=== PATIENT | female | born 1965 | race Caucasian/White ===

== ENCOUNTER 2023-06-14 18:07 | Emergency (ER) | payer OTHER ==
[~2023-06-14] VITALS: Ht 162.6 cm; Wt 72.7 kg
[2023-06-14] MEDS ORDERED: LEXA1TAB2 PO (18:20)
[2023-06-14] MEDS ORDERED: SUBO8MIS SL (18:20)
[2023-06-14] MEDS ORDERED: ROLLMIS8 XX (19:39)
[2023-06-14 19:43] VITALS: BP 138/51; TEMP 97.1; O2SAT 98
== END 2023-06-14 19:47 | disposition home or self-care (01) ==
LOC: M ED 18:37
DX: S80.01XA Contusion of right knee, initial encounter (principal); W06.XXXA Fall from bed, initial encounter; F41.9 Anxiety disorder, unspecified; F32.A Depression, unspecified; F17.200 Nicotine dependence, unspecified, uncomplicated; F12.11 Cannabis abuse, in remission; Y92.009 Unspecified place in unspecified non-institutional (private) residence as the place of occurrence of the external cause; Y93.89 Activity, other specified; Y99.9 Unspecified external cause status; Z79.899 Other long term (current) drug therapy

== ENCOUNTER 2023-11-17 06:56 | Emergency (ER) | payer MEDICARE, SELFPAY ==
[~2023-11-17] VITALS: Ht 165.1 cm; Wt 74.1 kg
[~2023-11-17 06:56] MED LIST: LEXA1TAB2 PO; ROLLMIS8 XX; SUBO8MIS SL
[2023-11-17 09:28] VITALS: BP 167/77; TEMP 99; O2SAT 98
[2023-11-17] MEDS: ACETAMINOPHEN 500 MG TAB PO ONE (10:13)
[2023-11-17] MEDS: BENZOCAINE 20% GEL 9GM TUBE (ANBESOL MAX STRENGTH) TOP ONE (10:13)
[2023-11-17] MEDS: ARTICAINE HCL/EPINEPHRINE 4%-1:200,000 1.7ML INJ (SEPTOCAINE) SM ONE (10:13)
[2023-11-17] MEDS ORDERED: AMOX875T2 PO (10:45)
== END 2023-11-17 11:15 | disposition home or self-care (01) ==
LOC: M ED 06:56 → EDBD 06:56 → M ED 11:15
DX: K02.9 Dental caries, unspecified (principal); K08.89 Other specified disorders of teeth and supporting structures; F17.200 Nicotine dependence, unspecified, uncomplicated; F11.10 Opioid abuse, uncomplicated; Z79.2 Long term (current) use of antibiotics; Z79.899 Other long term (current) drug therapy

== ENCOUNTER 2023-12-20 13:16 | Emergency (ER) | payer MEDICARE, MEDICAID ==
[~2023-12-20] VITALS: Ht 160 cm; Wt 78.2 kg
[~2023-12-20 13:16] MED LIST changes: +AMOX875T2 PO
[2023-12-20] MEDS ORDERED: VENL37.598 (13:52)
[2023-12-20] MEDS ORDERED: TRAZ-252 (13:52)
[2023-12-20] MEDS ORDERED: MECL-86 (13:52)
[2023-12-20] MEDS ORDERED: BUPR1SUB5 (13:52)
[2023-12-20 13:59] LABS: BASO % 0.4 % (0.0-1.0); EOS # 0.1 10^3/uL (0.0-0.5); HEMATOCRIT 38.6 % (36.0-47.0); LYMPH # 2.1 10^3/uL (1.5-5.0); LYMPH % 30.4 % (24.0-44.0); MEAN CORPUSCULAR HEMOGLOBIN 31.1 pg (27.0-33.0); MEAN CORPUSCULAR HGB CONC 33.7 g/dl (32.0-36.5); MEAN CORPUSCULAR VOLUME 92.3 fl (80.0-96.0); MONO # 0.4 10^3/uL (0.0-0.8); MONO % 5.9 % (2.0-8.0); NEUTROPHILS # 4.2 10^3/uL (1.5-8.5); PLATELET COUNT, AUTOMATED 236 10^3/uL (150-450); RED BLOOD COUNT 4.18 10^6/uL (4.00-5.40); WHITE BLOOD COUNT 6.8 10^3/uL (4.0-10.0)
[2023-12-20 14:27] LABS: LIPASE 27 U/L (12-53)
[2023-12-20 14:30] LABS: ALBUMIN 3.8 G/DL (3.2-5.2); ALKALINE PHOSPHATASE 53 U/L (46-116); ALT/SGPT 12 U/L (7.0-40); AST/SGOT 10 U/L (<34); BILIRUBIN,DIRECT 0.1 MG/DL (<0.4); BILIRUBIN,TOTAL 0.4 MG/DL (0.3-1.2); TOTAL PROTEIN 6.9 G/DL (5.7-8.2)
[2023-12-20] MEDS ORDERED: PROT1TAB2 PO (17:37)
[2023-12-20 17:45] VITALS: BP 111/70; TEMP 97; O2SAT 98
== END 2023-12-20 18:04 | disposition home or self-care (01) ==
LOC: EDBD 13:16 → M ED 13:16
DX: K29.70 Gastritis, unspecified, without bleeding (principal); K21.9 Gastro-esophageal reflux disease without esophagitis; E78.5 Hyperlipidemia, unspecified; F19.11 Other psychoactive substance abuse, in remission; Z90.89 Acquired absence of other organs; Z79.899 Other long term (current) drug therapy

== ENCOUNTER → 2024-01-06 | Outpatient (CLI) | payer MEDICARE, MEDICAID ==
[~2024-01-06] MED LIST changes: +BUPR1SUB5; +MECL-86; +PROT1TAB2 PO; +TRAZ-252; +VENL37.598
[2024-01-06 07:19] LABS: HEMATOCRIT 41.2 % (36.0-47.0); HEMOGLOBIN 13.4 g/dl (12.0-15.5); MEAN CORPUSCULAR HEMOGLOBIN 30.4 pg (27.0-33.0); MEAN CORPUSCULAR HGB CONC 32.5 g/dl (32.0-36.5); MEAN CORPUSCULAR VOLUME 93.4 fl (80.0-96.0); PLATELET COUNT, AUTOMATED 278 10^3/uL (150-450); RED BLOOD COUNT 4.41 10^6/uL (4.00-5.40); WHITE BLOOD COUNT 5.5 10^3/uL (4.0-10.0)
[2024-01-06 07:38] LABS: HEMOGLOBIN A1c 5.2 % (4.0-6.0)
[2024-01-06 07:47] LABS: ALBUMIN 3.8 G/DL (3.2-5.2); ALKALINE PHOSPHATASE 53 U/L (35-104); ALT/SGPT 13 U/L (7.0-40); AST/SGOT 9 U/L (<34); BILIRUBIN,TOTAL 0.2 MG/DL (0.3-1.2); BLOOD UREA NITROGEN 10 MG/DL (9-23); CALCIUM LEVEL 9.4 MG/DL (8.3-10.6); CARBON DIOXIDE LEVEL 33 MMOL/L (20-31); CHLORIDE LEVEL 106 MMOL/L (98-107); CHOLESTEROL LEVEL 201 MG/DL (<200); CHOLESTEROL RISK RATIO 3.75 (<5); CREATININE FOR GFR 0.72 MG/DL (0.55-1.30); GLOMERULAR FILTRATION RATE > 60.0 (>45); GLUCOSE, FASTING 96 MG/DL (74-106); HDL CHOLESTEROL 53.5 MG/DL (>40); LDL CHOLESTEROL 128.7 MG/DL (<100); MAGNESIUM LEVEL 2.2 MG/DL (1.8-2.4); NON-HDL-C 147.5 MG/DL; POTASSIUM SERUM 4.6 MMOL/L (3.5-5.1); SODIUM LEVEL 139 MMOL/L (136-145); TOTAL 25(OH) VITAMIN D 32.5 NG/ML (20.0-100.0); TOTAL PROTEIN 7.2 G/DL (5.7-8.2); TRIGLYCERIDES LEVEL 94 MG/DL (<150)
[2024-01-06 07:48] LABS: THYROXINE (T4) 9.3 UG/DL (4.5-10.9); VITAMIN B12 LEVEL 425 PG/ML (211-911)
[2024-01-06 07:49] LABS: FOLATE 7.95 NG/ML (>5.4); THYROID STIMULATING HORMONE 1.827 uIU/ML (0.55-4.78)
== END ==
LOC: M LAB 06:27
PROVIDERS: ATTEND Nurse Practitioner Psychiatric/Mental Health
DX: F43.20 Adjustment disorder, unspecified (principal); Z79.899 Other long term (current) drug therapy

== ENCOUNTER → 2024-02-17 | Outpatient (CLI) | payer MEDICARE, MEDICAID | LOC: M CARPUL 07:52 | PROVIDERS: ATTEND Internal Medicine Cardiovascular Disease | DX: R94.31 Abnormal electrocardiogram [ECG] [EKG] (principal); R01.2 Other cardiac sounds; G47.9 Sleep disorder, unspecified ==

== ENCOUNTER → 2024-02-22 | Outpatient (CLI) | payer MEDICARE, MEDICAID | LOC: M RAD 08:23 | PROVIDERS: ATTEND Physician Assistant | DX: Z12.2 Encounter for screening for malignant neoplasm of respiratory organs (principal); F17.210 Nicotine dependence, cigarettes, uncomplicated ==

== ENCOUNTER → 2024-06-21 | Outpatient (CLI) | payer MEDICAID, OTHER ==
[~2024-06-21] MED LIST changes: +VENL75CA47
== END ==
LOC: M CARPUL 08:23
PROVIDERS: ATTEND Internal Medicine Cardiovascular Disease
DX: R94.31 Abnormal electrocardiogram [ECG] [EKG] (principal); R00.1 Bradycardia, unspecified

== ENCOUNTER 2024-07-01 08:03 | Emergency (ER) | payer OTHER ==
[~2024-07-01] VITALS: Ht 160 cm; Wt 79.4 kg
[2024-07-01] MEDS ORDERED: TRAZ-186 (09:06)
[2024-07-01 09:17] LABS: BASO % 0.3 % (0.0-1.0); EOS % 0.5 % (0.0-3.0); HEMATOCRIT 42.8 % (36.0-47.0); HEMOGLOBIN 14.1 g/dl (12.0-15.5); LYMPH # 1.3 10^3/uL (1.5-5.0); LYMPH % 22.4 % (24.0-44.0); MEAN CORPUSCULAR HEMOGLOBIN 30.7 pg (27.0-33.0); MEAN CORPUSCULAR HGB CONC 32.9 g/dl (32.0-36.5); MEAN CORPUSCULAR VOLUME 93.2 fl (80.0-96.0); MONO # 0.5 10^3/uL (0.0-0.8); MONO % 9.2 % (2.0-8.0); NEUTROPHILS # 3.9 10^3/uL (1.5-8.5); NEUTROPHILS % 67.4 % (36.0-66.0); PLATELET COUNT, AUTOMATED 247 10^3/uL (150-450); RED BLOOD COUNT 4.59 10^6/uL (4.00-5.40); WHITE BLOOD COUNT 5.8 10^3/uL (4.0-10.0)
[2024-07-01 09:38] LABS: LIPASE 23 U/L (12-53)
[2024-07-01 09:40] LABS: ALBUMIN 3.9 G/DL (3.2-5.2); ALKALINE PHOSPHATASE 56 U/L (35-104); ALT/SGPT 17 U/L (7.0-40); AST/SGOT 16 U/L (<34); BILIRUBIN,DIRECT 0.1 MG/DL (<0.4); BILIRUBIN,TOTAL 0.3 MG/DL (0.3-1.2); CK-MB VALUE MASS < 1.0 NG/ML (<3.6); CPK CREATINE PHOSPHOKINASE 58 U/L (34-145); MB/CK RELATIVE INDEX 1.72 (< OR =4); TOTAL PROTEIN 7.2 G/DL (5.7-8.2)
[2024-07-01 10:42] LABS: CK-MB VALUE MASS < 1.0 NG/ML (<3.6)
[2024-07-01 10:46] LABS: CPK CREATINE PHOSPHOKINASE 57 U/L (34-145); MB/CK RELATIVE INDEX 1.75 (< OR =4)
[2024-07-01 11:15] VITALS: BP 116/74; O2SAT 92
[2024-07-01 11:25] VITALS: TEMP 97.6
== END 2024-07-01 11:31 | disposition home or self-care (01) ==
LOC: M ED 08:03
DX: R07.9 Chest pain, unspecified (principal); R19.7 Diarrhea, unspecified; I25.2 Old myocardial infarction; F41.9 Anxiety disorder, unspecified; F32.A Depression, unspecified; F17.210 Nicotine dependence, cigarettes, uncomplicated; Z79.899 Other long term (current) drug therapy

== ENCOUNTER → 2024-09-29 | Outpatient (CLI) | payer OTHER ==
[~2024-09-29] MED LIST changes: +TRAZ-186
[2024-09-29 10:15] LABS: COMPLEMENT C4 25.4 MG/DL (12-36); RHEUMATOID FACTOR QUANT 23.2 IU/ML (<14)
[2024-10-03 12:02] LABS: ANTI SMITH(Sm) AB <1.0 NEG AI (<1.0 NEG); SSA SJOGRENS A <1.0 NEG AI (<1.0 NEG); SSB SJOGRENS B <1.0 NEG AI (<1.0 NEG)
[2024-10-04 00:07] LABS: C1 ESTERASE INHIB. FUNCTIONAL > 100 % (>=68)
== END ==
LOC: M LAB 08:49
PROVIDERS: ATTEND Physician Assistant
DX: R76.0 Raised antibody titer (principal)

== ENCOUNTER 2025-01-13 06:43 | Emergency (ER) | payer OTHER ==
[~2025-01-13] VITALS: Ht 160 cm; Wt 89.5 kg
[~2025-01-13 06:43] MED LIST changes: -BUPR1SUB5; +BUPR1SUB5 SL; +FLUT1BLS2 IH; -MECL-86; +MECL-86 PO; +PANT40TA29 PO; -TRAZ-186; +TRAZ-186 PO; -VENL75CA47; +VENL75CA47 PO; +VENTAER INH
[2025-01-13 07:35] LABS: BASO # 0.0 10^3/uL (0.0-0.2); BASO % 0.6 % (0.0-1.0); EOS # 0.0 10^3/uL (0.0-0.5); EOS % 0.4 % (0.0-3.0); LYMPH # 1.6 10^3/uL (1.5-5.0); LYMPH % 22.6 % (24.0-44.0); MONO # 0.4 10^3/uL (0.0-0.8); MONO % 6.2 % (2.0-8.0); NEUTROPHILS # 4.9 10^3/uL (1.5-8.5); NEUTROPHILS % 69.9 % (36.0-66.0); PLATELET COUNT, AUTOMATED 293 10^3/uL (150-450)
[2025-01-13] MEDS: NS (Normal Saline) 0.9% 1,000 ML IV ONE (08:02)
[2025-01-13 08:07] LABS: ALT/SGPT 12 U/L (7.0-40); AST/SGOT 18 U/L (<34); CALCIUM LEVEL 9.0 MG/DL (8.3-10.6); CARBON DIOXIDE LEVEL 30 MMOL/L (20-31); CHLORIDE LEVEL 103 MMOL/L (98-107); CREATININE FOR GFR 0.69 MG/DL (0.55-1.30); GLOMERULAR FILTRATION RATE > 90.0 (>45); POTASSIUM SERUM 4.3 MMOL/L (3.5-5.1); SODIUM LEVEL 141 MMOL/L (136-145)
[2025-01-13] MEDS: ONDANSETRON 4MG/2ML VIAL IV ONE ×2 (08:08→14:01)
[2025-01-13] MEDS: IPRATROPIUM 0.5 MG/ALBUTEROL 2.5 MG INH SOL UD 3 ML NEB ONE (08:10)
[2025-01-13 08:19] LABS: CK-MB VALUE MASS 1.0 NG/ML (<3.6)
[2025-01-13 08:50] LABS: CPK CREATINE PHOSPHOKINASE 50 U/L (34-145); MB/CK RELATIVE INDEX 2.00 (< OR =4)
[2025-01-13 09:22] LABS: CK-MB VALUE MASS < 1.0 NG/ML (<3.6)
[2025-01-13 09:23] LABS: CPK CREATINE PHOSPHOKINASE 44 U/L (34-145)
[2025-01-13 09:38] LABS: KETONE, URINE AUTO RFX NEGATIVE (NEGATIVE); LEUKOCYTE ESTERASE UR AUTO RFX NEGATIVE (NEGATIVE); NITRITE, URINE AUTO RFX NEGATIVE (NEGATIVE); RBC, URINE AUTO RFX 0 /HPF (0-3); SQUAM EPITHELIAL CELL UR AURFX 1 /HPF (0-6); WBC, URINE AUTO RFX 2 /HPF (0-3)
[2025-01-13 09:56] LABS: AMPHETAMINES LEVEL URINE NEGATIVE (NEGATIVE); BARBITURATES URINE NEGATIVE (NEGATIVE); BENZODIAZEPINES URINE NEGATIVE (NEGATIVE); CANNABINOIDS URINE NEGATIVE (NEGATIVE); COCAINE METABOLITE URINE NEGATIVE (NEGATIVE); METHADONE URINE NEGATIVE (NEGATIVE); OPIATES URINE NEGATIVE (NEGATIVE); PHENCYCLIDINE URINE NEGATIVE (NEGATIVE)
[2025-01-13] MEDS ORDERED: ISOVUE-370 76% 100 ML VIAL As Ordered ONE (10:14)
[2025-01-13] MEDS ORDERED: REGL5TAB2 PO (13:13)
[2025-01-13] MEDS ORDERED: ONDA-282 PO (13:13)
[2025-01-13 14:10] VITALS: BP 156/75; TEMP 97.6; O2SAT 98
== END 2025-01-13 14:05 | disposition home or self-care (01) ==
LOC: EDBD 06:43 → M ED 06:43
DX: R11.2 Nausea with vomiting, unspecified (principal); I25.2 Old myocardial infarction; F17.200 Nicotine dependence, unspecified, uncomplicated; Z90.49 Acquired absence of other specified parts of digestive tract; Z79.52 Long term (current) use of systemic steroids; Z79.899 Other long term (current) drug therapy
CPT/HCPCS: 70450; 71045; 74177; 80047; 80048; 80076; 80307; 81001; 82550; 82553; 83690; 84145; 84484; 85025; 87486; 87581; 87633; 87798; 93005; 94640; 96361; 96374; 96375; 99285; J2405; Q9967